=== PATIENT | female | born 1955 | race Caucasian/White ===

== ENCOUNTER 2020-04-09 11:57 | Emergency (ER) | payer OTHER ==
[~2020-04-09] VITALS: Ht 157.5 cm; Wt 90.7 kg
[2020-04-09 12:08] VITALS: BP 166/79
[2020-04-09] MEDS ORDERED: LEVO-T75 MCG PO (12:12)
[2020-04-09] MEDS ORDERED: KEFLEX500 M1 PO (12:24)
== END 2020-04-09 12:36 | disposition home or self-care (01) ==
LOC: M.ERS 11:57
DX: S61.411A Laceration without foreign body of right hand, initial encounter (principal); E03.9 Hypothyroidism, unspecified; Z88.0 Allergy status to penicillin; Z88.1 Allergy status to other antibiotic agents; W29.8XXA Contact with other powered hand tools and household machinery, initial encounter; Y93.89 Activity, other specified; Y92.89 Other specified places as the place of occurrence of the external cause; Y99.8 Other external cause status